=== PATIENT | female | born 1980 | race African-American/Black ===

== ENCOUNTER 2019-11-19 11:41 | Emergency (ER) | payer OTHER ==
[~2019-11-19] VITALS: Ht 157.5 cm; Wt 135.2 kg
[2019-11-19 11:41] VITALS: BP 117/72
--- NOTE | 2019-11-19 11:41 | NUR ---
PT BIBA BLS TO ER BED 11
--- NOTE | 2019-11-19 11:50 | NUR ---
BIBA W/ C/O HEADACHE 12/03 STARTING AROUND BASE OF NECK RADIATING TO POSTERIOR SCALP AND NAUSEA X5 DAYS. PT STATES SHE JUST LEFT [facility] FOR THE SAME COMPLAINT EARLIER TODAY. PT STATES "THEY DIDN'T DO ANYTHING FOR ME". PT IS A&O X3, APPEARS DROWSY. BUE/BLE STRENGTH EQUAL, NO FACIAL DROOP NOTED. DENIES INJURY/FALL. PT STATES "I FEEL LIKE THERE IS WATER BEHIND MY EYES" PT ADMITS TO USING METH X1 WEEK AGO. BED IN LOW POSITION, SIDE RAIL UP X1
--- NOTE | 2019-11-19 12:50 | NUR ---
PT RESTING IN BED AT LOWEST POSITION, HOB ELEVATED , SIDE RAILS X2 FOR PT SAFETY.
--- NOTE | 2019-11-19 13:42 | NUR ---
Patient discharged, pt refused VS recheck, last VS were stable. Written and verbal after care instructions given and explained. Patient alert, oriented and verbalized understanding of instructions. Ambulatory with steady gait. All questions addressed prior to discharge. ID band removed. Patient advised to follow up with PMD. Rx of tylenol given. Patient educated on indication of medication including possible reaction and side effects. Opportunity to ask questions provided and answered.
== END 2019-11-19 13:42 | disposition home or self-care (01) ==
LOC: MED 11:41
DX: F45.0 Somatization disorder (principal); F15.90 Other stimulant use, unspecified, uncomplicated; R51 Headache; M54.2 Cervicalgia; J45.909 Unspecified asthma, uncomplicated; F17.200 Nicotine dependence, unspecified, uncomplicated; Z88.0 Allergy status to penicillin; Z71.6 Tobacco abuse counseling
CPT/HCPCS: 99282